=== PATIENT | female | born 1940 | race Caucasian/White ===

== ENCOUNTER 2020-08-10 07:22 | Day surgery (SDCO) | payer MEDICARE, OTHER ==
[2020-08-10 08:22] LABS: BASOPHIL 0.4 % (0-2); EOSINOPHIL 0.9 % (0-7); HCT 37.5 % (37.0-47.0); HGB 12.3 g/dl (12.5-16.0); LYMPHOCYTE 11.9 % (15-48); MCH 30.3 pg (25.0-31.0); MCHC 32.8 g/dL (32.0-36.0); MCV 92.4 fL (78.0-100.0); MPV 11.8 fL (6.0-9.5); NEUTROPHIL 62.8 % (41-80); NRBC 0; PLT 137 K/uL (150-400); RBC 4.06 M/uL (4.20-5.40); WBC 11.3 K/uL (4.0-10.5)
[2020-08-10 08:26] LABS: MONOCYTE 21.2 % (0-12)
[2020-08-10 08:33] LABS: INR 1.21 (0.9-1.2); PROTHROMBIN TIME 14.5 SECONDS (11.4-13.6); PTT 25.7 SECONDS (22.2-34.7)
[2020-08-10 08:39] LABS: ALBUMIN 3.8 g/dL (3.4-5.0); BILIRUBIN - TOTAL 0.7 mg/dL (0.2-1.0); C-REACTIVE PROTEIN 2.1 mg/dL (<=0.90); CREATININE 0.74 mg/dL (0.51-0.95); GLOBULIN (CALCULATION) 3.3 g/dL; POTASSIUM 5.1 mmol/L (3.5-5.1); TOTAL PROTEIN 7.1 g/dL (6.4-8.2)
[2020-08-10 08:47] LABS: LACTIC ACID 0.9 mmol/L (0.4-1.9)
[2020-08-10 08:47] LABS: BILIRUBIN NEGATIVE (NEGATIVE); BLOOD NEGATIVE Ery/uL (NEGATIVE); CLARITY CLEAR (CLEAR); COLOR YELLOW (YELLOW); GLUCOSE (U) NORMAL (NORMAL); LEUKOCYTES NEGATIVE Leu/uL (NEGATIVE); NITRITE NEGATIVE (NEGATIVE); PROTEIN TRACE (LOW) mg/dL (NEGATIVE); SPECIFIC GRAVITY 1.015 (1.001-1.030)
[2020-08-10 09:11] LABS: BACTERIA TRACE; URINARY RBC RARE
[2020-08-10] MEDS ORDERED: AMIODARONE HCL200 MG PO (15:47)
[2020-08-10] MEDS ORDERED: CYMBALTA 30MG C30 MG PO (15:48)
[2020-08-10] MEDS ORDERED: LASIX40 MG PO (15:48)
[2020-08-10] MEDS ORDERED: ZESTRIL5 MG PO (15:48)
[2020-08-10] MEDS ORDERED: BAYER CHEWABLE81 MG PO (15:48)
[2020-08-10] MEDS ORDERED: NITRO-TIME2.5 MG PO (15:49)
[2020-08-10] MEDS ORDERED: ZOCOR40 MG PO (15:50)
[2020-08-10] MEDS ORDERED: OMEPRAZOLE40 MG PO (15:50)
[2020-08-10] MEDS ORDERED: NITRO-DUR0.1 MG TOP (15:51)
[2020-08-10] MEDS ORDERED: CALTRATE 600 +1 EAC1 PO (15:52)
[2020-08-10] MEDS ORDERED: HUMALOG 75100 UNIT/M SC (15:53)
[2020-08-10] MEDS ORDERED: LANTUS **100 UNITS/ SC (15:53)
[2020-08-10] MEDS ORDERED: ELIQUIS2.5 MG PO (15:55)
[2020-08-11 05:32] LABS: HCT 35.9 % (37.0-47.0); HGB 11.6 g/dl (12.5-16.0); MCH 30.4 pg (25.0-31.0); MCHC 32.3 g/dL (32.0-36.0); MCV 94.2 fL (78.0-100.0); MPV 11.4 fL (6.0-9.5); RBC 3.81 M/uL (4.20-5.40); WBC 9.5 K/uL (4.0-10.5)
[2020-08-11 05:50] LABS: BUN/CREAT RATIO (CALC) 14.5 RATIO; CREATININE 0.69 mg/dL (0.51-0.95); POTASSIUM 4.5 mmol/L (3.5-5.1)
[2020-08-11] MEDS ORDERED: ZPAK PO (10:50)
== END 2020-08-11 11:35 | disposition home or self-care (01) ==
LOC: FER 07:22 → FMS 13:34
PROVIDERS: Emergency Medicine; ADMIT Hospitalist
DX: S20.212A Contusion of left front wall of thorax, initial encounter (principal); R10.9 Unspecified abdominal pain; M54.6 Pain in thoracic spine; E78.5 Hyperlipidemia, unspecified; G89.11 Acute pain due to trauma; E11.9 Type 2 diabetes mellitus without complications; I11.0 Hypertensive heart disease with heart failure; I50.9 Heart failure, unspecified
CPT/HCPCS: 36415; 73502; 80048; 80053; 81001; 82962; 83605; 83690; 84145; 84484; 85025; 85379; 85610; 85730; 86140; 87088; G0378; J0696; J1170; J2405; J7030